=== PATIENT | female | born 2005 | race Caucasian/White ===

== ENCOUNTER 2024-05-21 20:23 | Emergency (ER) | payer MEDICAID ==
[2024-05-21] MEDS: Acetaminophen/HYDROcodone 325-10 MG Tab PO STA (21:07)
[2024-05-21] MEDS: Etomidate 2 MG/ML 20 ML SDV IVPUSH ONE (21:29)
== END 2024-05-21 23:30 | disposition home or self-care (01) ==
LOC: MW.ED 20:23
DX: S82.302A Unspecified fracture of lower end of left tibia, initial encounter for closed fracture (principal); S82.832A Other fracture of upper and lower end of left fibula, initial encounter for closed fracture; V00.211A Fall from ice-skates, initial encounter; Y93.21 Activity, ice skating
CPT/HCPCS: 27788; 73610; 99152; 99153; 99283; J3490

== ENCOUNTER 2024-11-24 05:55 | Observation (INO) | payer MEDICAID ==
[2024-11-24 07:02] LABS: MEAN PLATELET VOLUME 11.4 fL (9.4-12.3); NRBC ABSOLUTE 0.00 K/uL (0.00-0.02); NRBC PERCENT 0.0 /100WBC (0.0-0.2); PLATELET COUNT,PLT 260 K/uL (150-400); RED BLOOD CELL COUNT 4.62 M/uL (4.10-5.30); WHITE BLOOD CELL COUNT,WBC 9.69 K/uL (3.9-11.3)
[2024-11-24 07:21] LABS: A/G RATIO 1.2 (0.9-1.6); ALANINE AMINOTRANSFERASE,ALT 32.0 IU/L (14-63); ASPARTATE AMNIOTRANSFERASE,AST 20.0 IU/L (15-37); BILIRUBIN TOTAL 0.3 mg/dL (0.2-1.0); BLOOD UREA NITROGEN,BUN 8.0 mg/dL (7.0-18.0); CARBON DIOXIDE,CO2 24.3 mmol/L (21.0-32.0); CHLORIDE,CL 108.0 mmol/L (98-107); CREATININE 0.9 mg/dL (0.6-1.0); EST CRCL DRUG DOSING (CG) 82.48 mL/min; GLUCOSE RANDOM 119.0 mg/dL (74-106); POTASSIUM,K 3.9 mmol/L (3.5-5.1); PROTEIN TOTAL,TP 6.9 g/dL (6.4-8.2); SODIUM,NA 145.0 mmol/L (136-145)
[2024-11-24 07:27] LABS: ESTIMATED GFR 94.0 mL/min (>60)
[2024-11-24 07:56] LABS: APPEARANCE,URINE CLOUDY; GLUCOSE,URINE NEGATIVE (NEGATIVE); OCCULT BLOOD,URINE NEGATIVE (NEGATIVE)
[2024-11-24 08:08] LABS: EPITHELIAL CELLS,URINE RARE (NONE-FEW)
[2024-11-24] MEDS: Iopamidol 755 MG/ML 500 ML Multipack Bottle IVPUSH STA (08:54)
[2024-11-24 10:49] LABS: MEAN PLATELET VOLUME 11.0 fL (9.4-12.3); NRBC ABSOLUTE 0.00 K/uL (0.00-0.02); NRBC PERCENT 0.0 /100WBC (0.0-0.2); PLATELET COUNT,PLT 237 K/uL (150-400); RED BLOOD CELL COUNT 4.43 M/uL (4.10-5.30); WHITE BLOOD CELL COUNT,WBC 11.70 K/uL (3.9-11.3)
[2024-11-24] MEDS ORDERED: Ropivacaine 0.5% 5 MG/ML 30 ML SDV ONE (12:46)
[2024-11-24] MEDS ORDERED: propofoL 1,000 MG/100 ML 100 ML ONE (12:46)
[2024-11-24] MEDS ORDERED: Bupivacaine 0.5%/EPINEPHrine 1:200,000 30 ML SDV ONE (12:49)
[2024-11-24] MEDS ORDERED: dexmedeTOMIDine HCl 200 MCG/2 ML SDV ONE (12:54)
[2024-11-24] MEDS ORDERED: fentaNYL 100 MCG/2 ML SDV ONE (12:55)
[2024-11-24] MEDS ORDERED: Ketorolac 30 MG/ML SDV ONE (14:25)
[2024-11-24] MEDS: Lactated Ringers 1,000 ML IV ONE (17:07)
[2024-11-24] MEDS: Ketorolac 30 MG/ML SDV IVPUSH SCH (20:25)
== END 2024-11-25 12:26 | disposition home or self-care (01) ==
LOC: MW.ED 05:55 → MW.SDS 13:07 → MW.ED 13:07 → MW.OB 15:14
PROVIDERS: ADMIT Obstetrics & Gynecology; ATTEND Obstetrics & Gynecology
DX: N83.201 Unspecified ovarian cyst, right side (principal); K66.1 Hemoperitoneum; R10.84 Generalized abdominal pain; Z79.899 Other long term (current) drug therapy
CPT/HCPCS: 36415; 49322; 58301; 58662; 64488; 71046; 74177; 76830; 76856; 80053; 81001; 81025; 85027; 93005; 96374; 96376; 99285; A9270; J0690; J1885; J2270; J2704; J2795; J3010; J7040; J7120; Q9967; 93010; 99284; J0665; J3490

== ENCOUNTER 2024-12-30 12:29 | Emergency (ER) | payer MEDICAID ==
[2024-12-30 13:32] LABS: BASOPHILS ABSOLUTE AUTO 0.03 K/uL (0.00-0.20); BASOPHILS PERCENT AUTO 0.5 % (0.0-1.0); EOSINOPHILS ABSOLUTE AUTO 0.09 K/uL (0.00-0.45); EOSINOPHILS PERCENT AUTO 1.4 % (0.0-6.0); IMMATURE GRAN ABSOLUTE AUTO 0.02 K/uL (0.00-0.05); IMMATURE GRAN PERCENT AUTO 0.3 % (0.0-0.4); LYMPHOCYTES ABSOLUTE AUTO 2.25 K/uL (1.00-4.80); LYMPHOCYTES PERCENT AUTO 35.3 % (24.0-44.0); MEAN PLATELET VOLUME 11.4 fL (9.4-12.3); MONOCYTES ABSOLUTE AUTO 0.48 K/uL (0.00-0.80); MONOCYTES PERCENT AUTO 7.5 % (0.0-8.0); NEUTROPHILS ABSOLUTE AUTO 3.51 K/uL (1.80-7.70); NEUTROPHILS PERCENT AUTO 55.0 % (41.0-71.0); NRBC ABSOLUTE 0.00 K/uL (0.00-0.02); NRBC PERCENT 0.0 /100WBC (0.0-0.2); PLATELET COUNT,PLT 215 K/uL (150-400); RED BLOOD CELL COUNT 4.49 M/uL (4.10-5.30); WHITE BLOOD CELL COUNT,WBC 6.38 K/uL (3.9-11.3)
[2024-12-30 13:53] LABS: A/G RATIO 1.1 (0.9-1.6); ALANINE AMINOTRANSFERASE,ALT 31 IU/L (14-63); ASPARTATE AMNIOTRANSFERASE,AST 25 IU/L (15-37); BILIRUBIN TOTAL 0.5 mg/dL (0.2-1.0); BLOOD UREA NITROGEN,BUN 11 mg/dL (7.0-18.0); CARBON DIOXIDE,CO2 23.3 mmol/L (21.0-32.0); CHLORIDE,CL 110 mmol/L (98-107); CREATININE 0.8 mg/dL (0.6-1.0); GLUCOSE RANDOM 95 mg/dL (74-106); POTASSIUM,K 3.9 mmol/L (3.5-5.1); PROTEIN TOTAL,TP 6.7 g/dL (6.4-8.2); SODIUM,NA 143 mmol/L (136-145)
[2024-12-30 13:55] LABS: ESTIMATED GFR 108 mL/min (>60)
[2024-12-30 14:38] LABS: APPEARANCE,URINE SLT CLOUDY; GLUCOSE,URINE NEGATIVE (NEGATIVE); OCCULT BLOOD,URINE LARGE (NEGATIVE)
[2024-12-30 14:46] LABS: EPITHELIAL CELLS,URINE FEW (NONE-FEW)
[2024-12-30] MEDS: Nitrofurantoin Monohydrate/Macrocrystalline 100 MG Cap PO ONE (15:58)
== END 2024-12-30 16:10 | disposition home or self-care (01) ==
LOC: MW.ED 12:29
DX: N99.821 Postprocedural hemorrhage of a genitourinary system organ or structure following other procedure (principal); N39.0 Urinary tract infection, site not specified; N93.8 Other specified abnormal uterine and vaginal bleeding; Z79.899 Other long term (current) drug therapy
CPT/HCPCS: 36415; 76856; 80053; 81001; 85025; 86850; 86900; 86901; 99284; A9270; 99283

== ENCOUNTER 2025-05-06 17:31 | Emergency (ER) | payer MEDICAID | END 2025-05-06 19:42 | disposition home or self-care (01) | LOC: MW.ED 17:31 | DX: S89.92XA Unspecified injury of left lower leg, initial encounter (principal); Z90.89 Acquired absence of other organs; W19.XXXA Unspecified fall, initial encounter | CPT/HCPCS: 73562-26-LT; 73562-LT; 99283 ==